=== PATIENT | male | born 1990 | race Caucasian/White ===

== ENCOUNTER 2023-02-01 08:39 | Day surgery (SDC) | payer BC ==
[~2023-02-01 08:39] MED LIST: Propofol 200 MG/20 ML SDV ONE
[2023-02-01] MEDS ORDERED: Sodium Chloride 0.9% 10 ML Syringe FLUSH PRN (08:45)
[2023-02-01] MEDS ORDERED: Lactated Ringers 1,000 ML IV SCH (08:45)
[2023-02-01] MEDS ORDERED: Propofol 200 MG/20 ML SDV ONE (10:50)
== END 2023-02-01 11:31 | disposition home or self-care (01) ==
LOC: LL.SDS 08:39 → MERGE 13:45
PROVIDERS: ATTEND Surgery
DX: K64.8 Other hemorrhoids (principal); E66.3 Overweight; Z88.0 Allergy status to penicillin; Z88.2 Allergy status to sulfonamides; Z68.26 Body mass index [BMI] 26.0-26.9, adult
CPT/HCPCS: J2704; J7120